=== PATIENT | female | born 1975 ===

== ENCOUNTER 2024-10-22 15:15 | Inpatient (IN) | payer OTHER ==
[2024-10-22 18:11] LABS: BASO % 0.8 % (0-2.0); EOS % 1.5 % (0-4.5); HEMATOCRIT 30.5 % (32.4-45.2); HEMOGLOBIN 9.6 GM/dL (10.7-15.3); LYMPH % 9.6 % (8-40); MCH 27.8 pg (25.7-33.7); MCHC 31.5 g/dl (32.0-36.0); MEAN CELL VOLUME 88.1 fl (80-96); MEAN PLT VOLUME 8.5 fl (7.5-11.1); MONO % 6.4 % (3.8-10.2); NEUT % 81.7 % (42.8-82.8); PLATELET COUNT 356 10^3/uL (134-434); RBC 3.46 M/mm3 (3.60-5.2); RDW 19.3 % (11.6-15.6)
[2024-10-22] MEDS: HYDROmorphone HCL 2 MG TABLET PO ONE (18:12)
[2024-10-22] MEDS: ACETAMINOPHEN 1000 MG/100 ML BAG IVPB ONE (18:13)
[2024-10-22 18:29] LABS: POTASSIUM 4.4 mmol/L (3.5-5.1)
[2024-10-22 18:31] LABS: CALCIUM 8.7 mg/dL (8.5-10.1)
[2024-10-22 18:32] LABS: ALBUMIN 3.1 g/dl (3.4-5.0); BLOOD UREA NITROGEN 32.3 mg/dL (7-18)
[2024-10-22 18:35] LABS: CREATININE 5.6 mg/dL (0.55-1.3)
[2024-10-22 18:36] LABS: BILIRUBIN,TOTAL 0.5 mg/dL (0.2-1); TOT PROT 7.9 g/dl (6.4-8.2)
[2024-10-22] MEDS: VANCOMYCIN 1,000 MG in DEXTROSE 5%-WATER - 250 ML IVPB ONE (19:40)
[2024-10-22] MEDS: PIPERACILLIN/TAZOB 3.375 GM 3.375 GM in DEXTROSE 5%-WATER - 50 ML IVPB ONE (19:40)
[2024-10-22] MEDS ORDERED: VANCOMYCIN 1 GM PREMIX (F) 1 GM/200 ML BAG ONE ×2 (19:45→20:19)
[2024-10-22] MEDS ORDERED: HYDROmorphone HCL CARPU-JECT 2 MG/1 ML DISP.SYRIN ONE (20:16)
[2024-10-22] MEDS: HYDROmorphone HCl 2 MG/ML VIAL IVPB ONE (20:44)
[2024-10-22] MEDS: VANCOMYCIN 1 GM PREMIX (F) 1 GM/200 ML BAG IVPB ONE (20:44)
[2024-10-22 21:39] LABS: INR 1.58 (0.83-1.09); PROTHROMBIN TIME (PATIENT) 17.4 SEC (9.7-13.0)
[2024-10-22 21:42] LABS: ACTIVATED PTT 33.6 SECONDS (25.2-36.5)
[2024-10-22] MEDS: INSULIN ASPART SLIDING SCALE (NOVOLOG) 1 VIAL SQ SCH (22:26)
[2024-10-22] MEDS: INSULIN (LEVEMIR) 100 UNITS/ML UNITS SQ SCH (22:56)
[2024-10-22] MEDS: CEFEPIME 2 GM in DEXTROSE 5%-WATER 100 ML IVPB ONE (23:14)
[2024-10-22] MEDS: HYDROmorphone HCL 2 MG TABLET PO PRN (23:15)
[2024-10-22] MEDS: CEFEPIME HCL 2 GM VIAL (RESTRICTED TO ID) IVPB ONE (23:16)
[2024-10-22] MEDS: CEFEPIME HCL 2 GM VIAL (RESTRICTED TO ID) IVPB SCH (23:17)
[2024-10-23] MEDS: oxyCODONE HCL 5 MG TABLET PO ONE (04:37)
[2024-10-23] MEDS ORDERED: HEPARIN NA (PORCINE) 5,000 UNITS/ML 1ML VIAL SQ SCH (06:00)
[2024-10-23] MEDS: hydrALAZINE HCL 50 MG TABLET (FP) PO SCH (06:41)
[2024-10-23] MEDS: SERTRALINE HCL 25 MG TABLET (FP) PO SCH (09:16)
[2024-10-23] MEDS: DULoxetine HCL 30 MG CAPSULE.DR PO SCH (09:16)
[2024-10-23] MEDS: NIFEdipine E.R. 90 MG TABLET PO SCH (09:17)
[2024-10-23] MEDS: CALCITRIOL 0.25 MCG CAPSULE (FP) PO SCH (09:17)
[2024-10-23] MEDS: ASPIRIN COATED 81 MG TABLET.EC PO SCH (09:17)
[2024-10-23] MEDS: ZINC SULFATE 220 MG CAPSULE (FP) PO SCH (09:17)
[2024-10-23] MEDS: SEVELAMER CARBONATE 800 MG TAB (FP) PO SCH (09:17)
[2024-10-23] MEDS: GABAPENTIN 300 MG CAPSULE PO SCH (09:17)
[2024-10-23] MEDS: ACETAMINOPHEN 325 MG TABLET (FP) PO SCH (09:17)
[2024-10-23] MEDS: ASCORBIC ACID 250 MG TABLET (FP) PO SCH (09:17)
[2024-10-23] MEDS: FERROUS SO4 325 MG TABLET (FP) PO SCH (09:17)
[2024-10-23 09:41] LABS: BASO % 0.9 % (0-2.0); EOS % 0.9 % (0-4.5); HEMATOCRIT 29.2 % (32.4-45.2); HEMOGLOBIN 9.3 GM/dL (10.7-15.3); LYMPH % 10.3 % (8-40); MCH 27.8 pg (25.7-33.7); MCHC 31.9 g/dl (32.0-36.0); MEAN CELL VOLUME 87.2 fl (80-96); MEAN PLT VOLUME 8.3 fl (7.5-11.1); MONO % 6.8 % (3.8-10.2); NEUT % 81.1 % (42.8-82.8); PLATELET COUNT 373 10^3/uL (134-434); RBC 3.34 M/mm3 (3.60-5.2); RDW 19.2 % (11.6-15.6); WHITE BLOOD COUNT 13.8 K/mm3 (4.0-10.0)
[2024-10-23 09:57] LABS: CHLORIDE 92 mmol/L (98-107); POTASSIUM 4.7 mmol/L (3.5-5.1); SODIUM 130 mmol/L (136-145)
[2024-10-23 10:00] LABS: CALCIUM 9.4 mg/dL (8.5-10.1)
[2024-10-23 10:01] LABS: ALBUMIN 3.2 g/dl (3.4-5.0); ANION GAP 10 mmol/L (4-13); BLOOD UREA NITROGEN 37.3 mg/dL (7-18); CO2 27 mmol/L (21-32); GLUCOSE,RANDOM 50 mg/dL (74-106); MAGNESIUM 2.3 mg/dL (1.8-2.4)
[2024-10-23 10:04] LABS: PHOSPHOROUS 4.4 mg/dL (2.5-4.9); SGOT/AST 16 U/L (15-37); SGPT/ALT 10 U/L (13-61)
[2024-10-23 10:05] LABS: BILIRUBIN,TOTAL 0.6 mg/dL (0.2-1)
[2024-10-23 10:06] LABS: TOT PROT 7.8 g/dl (6.4-8.2)
[2024-10-23 10:07] LABS: ALK PHOS 410 U/L (45-117)
[2024-10-23 12:37] LABS: HIV INTERPRETATION NEGATIVE (NEGATIVE)
[2024-10-23] MEDS ORDERED: SODIUM CHLORIDE 250 ML IV PRN (13:51)
[2024-10-23 14:25] VITALS: BMI 25.4
[2024-10-23] MEDS: HYDROmorphone HCL CARPU-JECT 2 MG/1 ML DISP.SYRIN IVPB PRN (16:12)
[2024-10-23] MEDS: EPOETIN ALFA-EPBX 4,000 UNIT/ML VIAL SQ ONE (17:01)
[2024-10-23] MEDS: COLLAGENASE CLOSTRIDIUM HIST. 30 GRAMS TUBE TP SCH (17:34)
[2024-10-23] MEDS: BUDESONIDE/FORMETEROL FUMARATE 160/4.5 mcg INHALER IH SCH (17:34)
[2024-10-23] MEDS: CLINDAMYCIN 600MG PREMIX IVPB 600 MG/50 ML BAG IVPB SCH (18:16)
[2024-10-23] MEDS: SENNOSIDES 8.8 MG/5 ML SYRUP PO ONE (18:57)
[2024-10-23] MEDS: MONTELUKAST NA 10 MG TABLET PO SCH (21:43)
[2024-10-23] MEDS: ATORVASTATIN CA 40 MG TABLET (FP) PO SCH (21:43)
[2024-10-23] MEDS: INSULIN (LEVEMIR) 100 UNITS/ML UNITS SQ SCH (21:44)
[2024-10-23] MEDS: CEFEPIME HCL/D5W 2 GM/50 ML BAG IVPB SCH (23:49)
[2024-10-24] MEDS: POLYETHYLENE GLYCOL (HEALTHYLAX) 3350 17 GM PACKET PO PRN (00:22)
[2024-10-24 10:39] LABS: HEMATOCRIT 33.6 % (32.4-45.2); HEMOGLOBIN 10.6 GM/dL (10.7-15.3); MCH 27.6 pg (25.7-33.7); MCHC 31.4 g/dl (32.0-36.0); MEAN CELL VOLUME 87.9 fl (80-96); MEAN PLT VOLUME 8.3 fl (7.5-11.1); PLATELET COUNT 405 10^3/uL (134-434); RBC 3.82 M/mm3 (3.60-5.2); RDW 19.1 % (11.6-15.6); WHITE BLOOD COUNT 11.5 K/mm3 (4.0-10.0)
[2024-10-24 10:56] LABS: POTASSIUM 4.3 mmol/L (3.5-5.1)
[2024-10-24 10:59] LABS: CALCIUM 8.8 mg/dL (8.5-10.1)
[2024-10-24 11:00] LABS: BLOOD UREA NITROGEN 19.6 mg/dL (7-18)
[2024-10-24 11:03] LABS: CREATININE 3.9 mg/dL (0.55-1.3)
[2024-10-24] MEDS: PATIENT'S OWN MEDICATION (NON-FORMULARY) (Isosorbide Dinitrate [Isordil] 10 MG Tablet) PO SCH (12:56)
[2024-10-24] MEDS: VANCOMYCIN/WATER FOR INJ (PEG) 1,000 MG/200 ML BAG IVPB ONE (18:25)
[2024-10-24] MEDS: SENNOSIDES 8.8 MG/5 ML SYRUP PO SCH (22:03)
[2024-10-24] MEDS: ISOSORBIDE DINITRATE 10 MG TABLET PO SCH (22:04)
[2024-10-25 09:36] LABS: HEMATOCRIT 33.2 % (32.4-45.2); HEMOGLOBIN 10.3 GM/dL (10.7-15.3); MCH 27.4 pg (25.7-33.7); MEAN CELL VOLUME 88.4 fl (80-96); MEAN PLT VOLUME 8.1 fl (7.5-11.1); PLATELET COUNT 369 10^3/uL (134-434); RBC 3.75 M/mm3 (3.60-5.2); RDW 19.1 % (11.6-15.6); WHITE BLOOD COUNT 11.6 K/mm3 (4.0-10.0)
[2024-10-25] MEDS: ISOSORBIDE DINITRATE 10 MG TABLET PO SCH (11:21)
[2024-10-26] MEDS ORDERED: SODIUM CHLORIDE 250 ML IV PRN (09:35)
[2024-10-26 09:52] LABS: EOS % 2.6 % (0-4.5); HEMATOCRIT 28.2 % (32.4-45.2); MCH 27.6 pg (25.7-33.7); MCHC 31.8 g/dl (32.0-36.0); MEAN PLT VOLUME 8.5 fl (7.5-11.1); MONO % 6.9 % (3.8-10.2); NEUT % 79.5 % (42.8-82.8); PLATELET COUNT 397 10^3/uL (134-434); RBC 3.24 M/mm3 (3.60-5.2); RDW 19.3 % (11.6-15.6); WHITE BLOOD COUNT 11.9 K/mm3 (4.0-10.0)
[2024-10-26 10:10] LABS: POTASSIUM 5.1 mmol/L (3.5-5.1)
[2024-10-26 10:29] LABS: BLOOD UREA NITROGEN 30.9 mg/dL (7-18); CALCIUM 8.8 mg/dL (8.5-10.1)
[2024-10-26 10:30] LABS: ALBUMIN 2.6 g/dl (3.4-5.0)
[2024-10-26 10:33] LABS: CREATININE 5.1 mg/dL (0.55-1.3)
[2024-10-26 10:35] LABS: BILIRUBIN,TOTAL 0.6 mg/dL (0.2-1); TOT PROT 6.8 g/dl (6.4-8.2)
[2024-10-26] MEDS: EPOETIN ALFA-EPBX 3,000 UNIT/ML VIAL SQ ONE (10:49)
[2024-10-26] MEDS: HYDROmorphone HCL CARPU-JECT 2 MG/1 ML DISP.SYRIN IVPB PRN (17:51)
[2024-10-27] MEDS: CEFEPIME HCL 2 GM VIAL (RESTRICTED TO ID) IVPB SCH (07:43)
[2024-10-27] MEDS: EPOETIN ALFA-EPBX 4,000 UNIT/ML VIAL SQ ONE (07:45)
[2024-10-27 16:07] LABS: C-ANCA <1:20 titer (Neg:<1:20)
[2024-10-27] MEDS: HYDROmorphone HCL CARPU-JECT 2 MG/1 ML DISP.SYRIN IVPB ONE (21:39)
[2024-10-28] MEDS: HYDROmorphone HCL 2 MG TABLET PO PRN (08:05)
[2024-10-28] MEDS ORDERED: SODIUM CHLORIDE 250 ML IV PRN (10:54)
[2024-10-28] MEDS ORDERED: LOPERAMIDE HCL 2 MG CAPSULE PO ONE (14:15)
[2024-10-28] MEDS: LOPERAMIDE HCL 2 MG CAPSULE PO ONE (14:38)
[2024-10-28] MEDS: CycloBENZAprine HCL 5 MG TABLET PO ONE (14:44)
[2024-10-28] MEDS: EPOETIN ALFA-EPBX 4,000 UNIT/ML VIAL IVPUSH ONE (22:12)
[2024-10-29] MEDS ORDERED: HYDROmorphone HCL 2 MG TABLET PO PRN (00:46)
[2024-10-29] MEDS ORDERED: HYDROmorphone HCl 2 MG/ML VIAL IVPUSH ONE (03:33)
[2024-10-29 10:06] LABS: HEMATOCRIT 28.2 % (32.4-45.2); HEMOGLOBIN 8.7 GM/dL (10.7-15.3); MCH 27.2 pg (25.7-33.7); MEAN CELL VOLUME 87.8 fl (80-96); MEAN PLT VOLUME 8.3 fl (7.5-11.1); PLATELET COUNT 407 10^3/uL (134-434); RBC 3.21 M/mm3 (3.60-5.2); RDW 18.5 % (11.6-15.6); WHITE BLOOD COUNT 11.2 K/mm3 (4.0-10.0)
[2024-10-29 10:23] LABS: POTASSIUM 4.6 mmol/L (3.5-5.1)
[2024-10-29 10:27] LABS: BLOOD UREA NITROGEN 21.7 mg/dL (7-18); CALCIUM 8.8 mg/dL (8.5-10.1)
[2024-10-29 10:31] LABS: CREATININE 3.3 mg/dL (0.55-1.3)
[2024-10-29] MEDS: CycloBENZAprine HCL 5 MG TABLET PO SCH (22:26)
[2024-10-30 16:10] LABS: HEMATOCRIT 26.8 % (32.4-45.2); HEMOGLOBIN 8.5 GM/dL (10.7-15.3); MCH 27.5 pg (25.7-33.7); MCHC 31.7 g/dl (32.0-36.0); MEAN CELL VOLUME 86.8 fl (80-96); MEAN PLT VOLUME 8.1 fl (7.5-11.1); PLATELET COUNT 374 10^3/uL (134-434); RBC 3.08 M/mm3 (3.60-5.2); WHITE BLOOD COUNT 11.4 K/mm3 (4.0-10.0)
[2024-10-30 16:37] LABS: CHLORIDE 95 mmol/L (98-107); SODIUM 131 mmol/L (136-145)
[2024-10-30 16:38] LABS: CALCIUM 8.9 mg/dL (8.5-10.1)
[2024-10-30 16:39] LABS: BLOOD UREA NITROGEN 40.1 mg/dL (7-18); CO2 29 mmol/L (21-32); GLUCOSE,RANDOM 139 mg/dL (74-106); MAGNESIUM 2.2 mg/dL (1.8-2.4)
[2024-10-30 16:42] LABS: CREATININE 4.5 mg/dL (0.55-1.3)
[2024-10-30] MEDS ORDERED: SODIUM CHLORIDE 250 ML IV PRN (16:42)
[2024-10-30 16:46] LABS: ANION GAP 7 mmol/L (4-13); POTASSIUM 6.3 mmol/L (3.5-5.1)
[2024-10-30] MEDS: EPOETIN ALFA-EPBX 4,000 UNIT/ML VIAL SQ ONE (18:00)
[2024-10-31] MEDS: POLYETHYLENE GLYCOL (HEALTHYLAX) 3350 17 GM PACKET PO PRN (22:44)
[2024-11-01] MEDS: HYDROmorphone HCL 2 MG TABLET PO PRN (09:47)
[2024-11-01 10:09] LABS: BASO % 1.2 % (0-2.0); EOS % 1.5 % (0-4.5); HEMATOCRIT 28.7 % (32.4-45.2); LYMPH % 6.9 % (8-40); MCH 27.1 pg (25.7-33.7); MCHC 31.2 g/dl (32.0-36.0); MEAN CELL VOLUME 86.9 fl (80-96); MEAN PLT VOLUME 8.2 fl (7.5-11.1); MONO % 5.6 % (3.8-10.2); NEUT % 84.8 % (42.8-82.8); PLATELET COUNT 402 10^3/uL (134-434); RBC 3.31 M/mm3 (3.60-5.2); RDW 18.8 % (11.6-15.6); WHITE BLOOD COUNT 14.6 K/mm3 (4.0-10.0)
[2024-11-01 10:21] LABS: SODIUM 133 mmol/L (136-145)
[2024-11-01 10:24] LABS: ALBUMIN 2.9 g/dl (3.4-5.0); BLOOD UREA NITROGEN 33.6 mg/dL (7-18); CALCIUM 9.7 mg/dL (8.5-10.1); CO2 27 mmol/L (21-32)
[2024-11-01 10:25] LABS: GLUCOSE,RANDOM 97 mg/dL (74-106)
[2024-11-01 10:27] LABS: SGOT/AST 21 U/L (15-37); SGPT/ALT 13 U/L (13-61)
[2024-11-01 10:28] LABS: ANION GAP 10 mmol/L (4-13); CHLORIDE 96 mmol/L (98-107); CREATININE 4.1 mg/dL (0.55-1.3); POTASSIUM 6.1 mmol/L (3.5-5.1)
[2024-11-01 10:29] LABS: BILIRUBIN,TOTAL 0.6 mg/dL (0.2-1); TOT PROT 7.5 g/dl (6.4-8.2)
[2024-11-01 10:50] LABS: ALK PHOS 410 U/L (45-117)
[2024-11-01] MEDS: SODIUM ZIRCONIUM CYCLOSILICATE (LOKELMA) 5 GM PACKET PO ONE (12:24)
[2024-11-02 10:03] LABS: HEMATOCRIT 27.8 % (32.4-45.2); HEMOGLOBIN 8.9 GM/dL (10.7-15.3); MCH 27.5 pg (25.7-33.7); MCHC 31.8 g/dl (32.0-36.0); MEAN CELL VOLUME 86.5 fl (80-96); MEAN PLT VOLUME 8.4 fl (7.5-11.1); PLATELET COUNT 390 10^3/uL (134-434); RBC 3.22 M/mm3 (3.60-5.2); RDW 19.1 % (11.6-15.6); WHITE BLOOD COUNT 12.5 K/mm3 (4.0-10.0)
[2024-11-02] MEDS ORDERED: SODIUM CHLORIDE 250 ML IV PRN (10:31)
[2024-11-02 11:19] LABS: CHLORIDE 94 mmol/L (98-107); SODIUM 131 mmol/L (136-145)
[2024-11-02 11:21] LABS: CALCIUM 9.4 mg/dL (8.5-10.1)
[2024-11-02 11:22] LABS: BLOOD UREA NITROGEN 42.8 mg/dL (7-18); CO2 29 mmol/L (21-32); GLUCOSE,RANDOM 126 mg/dL (74-106); MAGNESIUM 2.3 mg/dL (1.8-2.4)
[2024-11-02 11:27] LABS: ANION GAP 8 mmol/L (4-13); POTASSIUM 6.5 mmol/L (3.5-5.1)
[2024-11-02] MEDS: EPOETIN ALFA-EPBX 4,000 UNIT/ML VIAL IVPUSH ONE (11:29)
[2024-11-03] MEDS: KETOROLAC TROMETHAMINE 15 MG/ML VIAL IVPUSH ONE (18:44)
[2024-11-04] MEDS ORDERED: SODIUM CHLORIDE 250 ML IV PRN (08:55)
[2024-11-04] MEDS: EPOETIN ALFA-EPBX 4,000 UNIT/ML VIAL SQ ONE (16:03)
[2024-11-06] MEDS: MELATONIN 1 MG TABLET PO ONE (03:08)
[2024-11-06] MEDS ORDERED: SODIUM CHLORIDE 250 ML IV PRN (14:33)
[2024-11-06] MEDS: EPOETIN ALFA-EPBX 4,000 UNIT/ML VIAL IVPUSH ONE (15:41)
[2024-11-07] MEDS: MELATONIN 5 MG TABLETS PO ONE (01:16)
[2024-11-07] MEDS: HYDROmorphone HCL CARPU-JECT 2 MG/1 ML DISP.SYRIN IVPB ONE (15:27)
[2024-11-08] MEDS ORDERED: SODIUM CHLORIDE 250 ML IV PRN (13:53)
[2024-11-09] MEDS: HYDROmorphone HCL CARPU-JECT 2 MG/1 ML DISP.SYRIN IVPB ONE (09:03)
[2024-11-09 09:36] LABS: HEMATOCRIT 25.8 % (32.4-45.2); HEMOGLOBIN 8.2 GM/dL (10.7-15.3); MCH 27.3 pg (25.7-33.7); MCHC 31.6 g/dl (32.0-36.0); MEAN CELL VOLUME 86.3 fl (80-96); MEAN PLT VOLUME 8.7 fl (7.5-11.1); PLATELET COUNT 411 10^3/uL (134-434); RBC 2.99 M/mm3 (3.60-5.2); RDW 18.7 % (11.6-15.6); WHITE BLOOD COUNT 12.9 K/mm3 (4.0-10.0)
[2024-11-09 09:57] LABS: CHLORIDE 92 mmol/L (98-107); SODIUM 131 mmol/L (136-145)
[2024-11-09 10:09] LABS: POTASSIUM 6.1 mmol/L (3.5-5.1)
[2024-11-09 10:24] LABS: CALCIUM 9.3 mg/dL (8.5-10.1)
[2024-11-09 10:25] LABS: ALBUMIN 2.9 g/dl (3.4-5.0); ANION GAP 9 mmol/L (4-13); BLOOD UREA NITROGEN 42.9 mg/dL (7-18); CO2 31 mmol/L (21-32); GLUCOSE,RANDOM 200 mg/dL (74-106)
[2024-11-09 10:28] LABS: CREATININE 4.5 mg/dL (0.55-1.3); SGOT/AST 28 U/L (15-37); SGPT/ALT 20 U/L (13-61)
[2024-11-09 10:30] LABS: TOT PROT 7.5 g/dl (6.4-8.2)
[2024-11-09 10:31] LABS: ALK PHOS 420 U/L (45-117)
[2024-11-09 10:33] LABS: BILIRUBIN,TOTAL 0.5 mg/dL (0.2-1)
[2024-11-09] MEDS: EPOETIN ALFA-EPBX 10,000 UNIT/ML VIAL SQ ONE (12:05)
[2024-11-09] MEDS: HYDROmorphone HCL 2 MG TABLET PO PRN (21:47)
[2024-11-11] MEDS ORDERED: SODIUM CHLORIDE 250 ML IV PRN (14:22)
[2024-11-11 15:06] LABS: HEMATOCRIT 26.9 % (32.4-45.2); HEMOGLOBIN 8.4 GM/dL (10.7-15.3); MCH 26.6 pg (25.7-33.7); MCHC 31.3 g/dl (32.0-36.0); MEAN CELL VOLUME 84.8 fl (80-96); MEAN PLT VOLUME 8.5 fl (7.5-11.1); PLATELET COUNT 418 10^3/uL (134-434); RBC 3.18 M/mm3 (3.60-5.2); RDW 19.2 % (11.6-15.6); WHITE BLOOD COUNT 11.8 K/mm3 (4.0-10.0)
[2024-11-11 15:38] LABS: POTASSIUM 5.5 mmol/L (3.5-5.1)
[2024-11-11 15:43] LABS: ALBUMIN 2.9 g/dl (3.4-5.0); BLOOD UREA NITROGEN 33.2 mg/dL (7-18); CALCIUM 9.7 mg/dL (8.5-10.1)
[2024-11-11 15:44] LABS: CREATININE 4.3 mg/dL (0.55-1.3)
[2024-11-11 15:46] LABS: BILIRUBIN,TOTAL 0.5 mg/dL (0.2-1); TOT PROT 7.4 g/dl (6.4-8.2)
[2024-11-11] MEDS: EPOETIN ALFA-EPBX 10,000 UNIT/ML VIAL IVPUSH ONE (15:51)
[2024-11-11] MEDS: INSULIN GLARGINE (LANTUS) 100 UNITS/ML UNITS SQ SCH (22:06)
[2024-11-12] MEDS ORDERED: SODIUM CHLORIDE 250 ML IV PRN (11:24)
[2024-11-13] MEDS: DEXTROSE 50%-WATER 25 GM/50 ML DISP.SYRIN IVPUSH PRN (05:40)
[2024-11-13 15:01] VITALS: RESP 18
[2024-11-13] MEDS: EPOETIN ALFA-EPBX 10,000 UNIT/ML VIAL IVPUSH ONE (16:56)
[2024-11-14 09:28] VITALS: BP 188/78; PULSE 98; TEMP 97.7
[2024-11-14] MEDS ORDERED: HYDROmorphone HCL CARPU-JECT 2 MG/1 ML DISP.SYRIN IVPUSH PRN (10:49)
== END 2024-11-14 13:10 | DRG 380 ==
LOC: JER 15:15 → JERBED 18:46 → J5S 21:24
PROVIDERS: ADMIT Internal Medicine; ATTEND Internal Medicine
PROC: 5A1D70Z Performance of Urinary Filtration, Intermittent, Less than 6 Hours Per Day (ICD-10-PCS; principal; 2024-11-13)
DX: E10.621 Type 1 diabetes mellitus with foot ulcer (principal); L97.419 Non-pressure chronic ulcer of right heel and midfoot with unspecified severity; I12.0 Hypertensive chronic kidney disease with stage 5 chronic kidney disease or end stage renal disease; F11.20 Opioid dependence, uncomplicated; M86.60 Other chronic osteomyelitis, unspecified site; N18.6 End stage renal disease; A49.02 Methicillin resistant Staphylococcus aureus infection, unspecified site; F32.A Depression, unspecified; I25.10 Atherosclerotic heart disease of native coronary artery without angina pectoris; J45.909 Unspecified asthma, uncomplicated; L08.9 Local infection of the skin and subcutaneous tissue, unspecified; M79.672 Pain in left foot; Z79.4 Long term (current) use of insulin; Z99.2 Dependence on renal dialysis; Z99.3 Dependence on wheelchair; K59.00 Constipation, unspecified
CPT/HCPCS: 36415; 73630-TC-RT-FY; 80048; 80053; 82962; 83036; 83520; 83735; 84100; 85025; 85027; 85610; 85651; 85730; 86038; 86140; 86200; 86256; 86431; 86480; 86705; 86707; 86708; 86780; 86850; 86900; 86901; 87040; 87070; 87186; 87205; 87340; 87350; 87389; 87517; 87522; 93005; 93010; 93925-TC; 97116-GP; 97162-GP; 99285-25; G0480; J0131; Q5106